=== PATIENT | male | born 1965 | race Caucasian/White ===

== ENCOUNTER 2017-05-24 17:03 | Emergency (ER) | payer SELFPAY ==
[~2017-05-24] VITALS: Ht 167.6 cm; Wt 73.0 kg
[2017-05-24 17:39] VITALS: BP 158/111
[2017-05-24] MEDS ORDERED: NITROGLYCERIN 0.2MG/HR PATCH TOP ONE (18:00)
[2017-05-24] MEDS ORDERED: NAPROXEN 375MG TABLET PO ONE (18:00)
[2017-05-24] MEDS ORDERED: CLONIDINE 0.3MG TABLET PO ONE (18:00)
[2017-05-24] MEDS ORDERED: ACETAMINOPHEN 325MG TABLET PO ONE (18:00)
== END 2017-05-24 18:08 | disposition left against medical advice (07) ==
LOC: ER 17:37
DX: I12.9 Hypertensive chronic kidney disease with stage 1 through stage 4 chronic kidney disease, or unspecified chronic kidney disease (principal); N18.9 Chronic kidney disease, unspecified; M10.9 Gout, unspecified; Z88.5 Allergy status to narcotic agent; Z88.8 Allergy status to other drugs, medicaments and biological substances
CPT/HCPCS: 93005; 99282; 99283